=== PATIENT | female | born 1955 | race Caucasian/White ===

== ENCOUNTER 2023-06-11 09:10 | Emergency (ER) | payer MEDICARE, BC ==
[~2023-06-11] VITALS: Ht 172.7 cm; Wt 74.4 kg
[2023-06-11 09:12] VITALS: BP 201/98; PULSE 96; RESP 16; TEMP 98.2; O2SAT 100
[2023-06-11 10:03] LABS: BASOPHILS % (AUTO) 0.5 % (0-1); EOSINOPHILS # (AUTO) 0.2 X10'3 (0-0.9); HEMATOCRIT 36.8 % (35.0-45.0); HEMOGLOBIN 12.1 g/dl (12.0-16.0); LYMPHOCYTES % (AUTO) 15.2 % (21-51); MEAN CORPUSCULAR HGB CONC 32.8 g/dL (33.0-36.5); MEAN CORPUSCULAR VOLUME 94.5 FL (78-98); MEAN PLATELET VOLUME 6.8 FL (7.4-10.4); MONOCYTES # (AUTO) 0.8 X10'3 (0-0.9); MONOCYTES % (AUTO) 12.1 % (2-12); NEUTROPHILS # (AUTO) 4.5 X10'3 (1.8-7.7); NEUTROPHILS % (AUTO) 69.2 % (42-75); PLATELET COUNT 327 X10'3 (140-440); RED BLOOD COUNT 3.89 X10'6 (4.20-5.60); RED CELL DISTRIBUTION WIDTH 15.8 % (11.5-14.5); WHITE BLOOD COUNT 6.4 X10'3 (4.5-11.0)
[2023-06-11 10:10] LABS: ALANINE AMINOTRANSFERASE 360 U/L (12-78); ALBUMIN 3.5 G/DL (3.4-5.0); ALKALINE PHOSPHATASE 534 IU/L (46-116); ASPARTATE AMINO TRANSFERASE 72 U/L (10-37); BILIRUBIN,DIRECT 0.4 MG/DL (0-0.3); BILIRUBIN,TOTAL 0.7 MG/DL (0.1-1.0); LIPASE 36 U/L (16-77); TOTAL PROTEIN 7.1 G/DL (6.4-8.2)
== END 2023-06-11 11:37 | disposition home or self-care (01) ==
LOC: ER 09:12
DX: K83.1 Obstruction of bile duct (principal)
CPT/HCPCS: 36415; 80076; 83690; 85025; 99283